=== PATIENT | female | born 1955 | race African-American/Black ===

== ENCOUNTER 2023-03-08 00:43 | Observation (INO) | payer OTHER ==
[2023-03-08] MEDS ORDERED: ALBUTEROL SO4 2.5/IPRATROPIUM 0.5 INH SOL 3 ML VIAL.NEB. NEB ONE ×2 (00:47→12:00)
[2023-03-08] MEDS ORDERED: DEXAMETHASONE SOD PHOSPHATE 10 MG/1 ML VIAL ONE (00:48)
[2023-03-08] MEDS ORDERED: MAGNESIUM SULFATE IN WATER 2 GM/50 ML IVPB IVPB ONE (01:00)
[2023-03-08] MEDS ORDERED: ACETAMINOPHEN INJECTION 100 ML IVPB ONE (01:10)
[2023-03-08] MEDS: ALBUTEROL SO4 2.5/IPRATROPIUM 0.5 INH SOL 3 ML VIAL.NEB. NEB SCH ×2 (01:15→01:30)
[2023-03-08] MEDS: ACETAMINOPHEN 1000 MG/100 ML BAG IVPB ONE (01:17)
[2023-03-08] MEDS ORDERED: DEXAMETHASONE SOD PHOSPHATE 10 MG/1 ML VIAL IM ONE (01:21)
[2023-03-08] MEDS ORDERED: MAGNESIUM SULF 50% (8.12 MEQ/2 ML-1 GM VIAL) IVPB ONE (01:21)
[2023-03-08 01:31] LABS: VENOUS BASE EXCESS 1.4 mmol/L (-2-2); VENOUS O2 SATURATION 45.1 % (70-80); VENOUS PCO2 46.6 mmHg (38-52); VENOUS PH 7.38 (7.310-7.410)
[2023-03-08 01:40] LABS: BASO % 0.2 % (0-2.0); EOS % 1.8 % (0-4.5); HEMATOCRIT 33.2 % (32.4-45.2); HEMOGLOBIN 11.6 GM/dL (10.7-15.3); LYMPH % 9.5 % (8-40); MCHC 34.8 g/dl (32.0-36.0); MEAN CELL VOLUME 97.6 fl (80-96); MEAN PLT VOLUME 8.6 fl (7.5-11.1); MONO % 3.9 % (3.8-10.2); NEUT % 84.6 % (42.8-82.8); PLATELET COUNT 225 10^3/uL (134-434); WHITE BLOOD COUNT 9.4 K/mm3 (4.0-10.0)
[2023-03-08 01:42] LABS: INR 1.12 (0.83-1.09)
[2023-03-08 02:16] LABS: POTASSIUM 3.9 mmol/L (3.5-5.1)
[2023-03-08 02:18] LABS: CALCIUM 8.7 mg/dL (8.5-10.1)
[2023-03-08 02:19] LABS: ALBUMIN 3.8 g/dl (3.4-5.0); BLOOD UREA NITROGEN 10.2 mg/dL (7-18)
[2023-03-08 02:23] LABS: BILIRUBIN,TOTAL 0.4 mg/dL (0.2-1); TOT PROT 7.8 g/dl (6.4-8.2)
[2023-03-08 02:31] LABS: EPI CELLS 7 /uL (0-25.1); HYALINE CASTS 0 /uL (0-3.1); PH,URINE 6.5 (5.0-8.0); URINE APPEARANCE CLEAR; URINE BACTERIA 27 /uL (0-1359); URINE BILIRUBIN NEGATIVE (NEGATIVE); URINE COLOR YELLOW; URINE GLUCOSE (UA) NEGATIVE (NEGATIVE); URINE KETONE NEGATIVE (NEGATIVE); URINE LEUK ESTERASE NEGATIVE (NEGATIVE); URINE NITRITE NEGATIVE (NEGATIVE); URINE PROTEIN NEGATIVE (NEGATIVE); URINE RBC 25 /uL (0-23.9); URINE UROBILINOGEN 0.2 mg/dL (0.2-1.0); URINE WBC 9 /uL (0-25.8)
[2023-03-08] MEDS ORDERED: morphine CARPU-JECT 2 MG/1 ML DISP.SYRIN IVPUSH ONE (03:22)
[2023-03-08 03:36] LABS: MAGNESIUM 3.7 mg/dL (1.8-2.4)
[2023-03-08] MEDS ORDERED: PIPERACILLIN/TAZOB 4.5 GM 4.5 GM in DEXTROSE 5%-WATER 100 ML IVPB ONE (04:06)
[2023-03-08] MEDS ORDERED: VANCOMYCIN 1,000 MG in DEXTROSE 5%-WATER - 250 ML IVPB ONE (04:06)
[2023-03-08] MEDS ORDERED: VANCOMYCIN 1 GRAM (PRE-DOCKED) 1,000 MG/250 ML BAG IVPB ONE (04:10)
[2023-03-08] MEDS ORDERED: PIPERACILLIN/TAZOB 4.5 GM 4.5 GM/100 ML BAG IVPB ONE (04:13)
[2023-03-08] MEDS ORDERED: DOCUSATE SODIUM 100 MG CAPSULE (FP) PO PRN (04:17)
[2023-03-08 06:31] VITALS: BMI 35.6
[2023-03-08] MEDS ORDERED: ALBUTEROL SO4 HFA INHALER IH PRN (07:49)
[2023-03-08] MEDS ORDERED: PATIENT'S OWN MEDICATION (NON-FORMULARY) (Tizanidine Hcl [Tizanidine Hcl] 4 MG Tablet) PO PRN (07:49)
[2023-03-08] MEDS ORDERED: AZITHROMYCIN IVPB 500 MG/250 ML BAG IVPB ONE (08:15)
[2023-03-08] MEDS ORDERED: FUROSEMIDE 20 MG TABLET (FP) PO ONE (08:30)
[2023-03-08] MEDS: ACETAMINOPHEN 1000 MG/100 ML BAG IVPB PRN ×2 (10:08→21:39)
[2023-03-08] MEDS: FLUTICASONE/UMECLIDIN/VILANTER(200-62.5-25 TRELEGY ELLIPTA) INAHLER IH SCH (10:09)
[2023-03-08] MEDS: CEFTRIAXONE 1 GM in DEXTROSE 5%-WATER - 50 ML IVPB SCH (10:09)
[2023-03-08] MEDS: ENOXAPARIN NA (PORCINE) 40 MG/0.4 ML DISP.SYRIN SQ SCH (10:09)
[2023-03-08] MEDS: FUROSEMIDE 20 MG TABLET (FP) PO SCH (10:10)
[2023-03-08] MEDS: ASPIRIN COATED 81 MG TABLET.EC PO SCH (10:10)
[2023-03-08] MEDS: ATENOLOL 50 MG TABLET (FP) PO SCH (10:10)
[2023-03-08] MEDS: SACUBITRIL/VALSARTAN 97 MG-103 MG TABLET PO SCH ×2 (10:11→21:38)
[2023-03-08] MEDS: HYDROXYCHLOROQUINE SO4 200 MG TABLET (FP) PO SCH ×2 (10:11→21:38)
[2023-03-08] MEDS: FAMOTIDINE 20 MG TABLET PO SCH (11:45)
[2023-03-08] MEDS: METHOCARBAMOL 500 MG TABLET PO SCH ×2 (16:41→23:30)
[2023-03-08] MEDS: ATORVASTATIN CA 20 MG TABLET (FP) PO SCH (21:39)
[2023-03-08] MEDS: MIRTAZAPINE 15 MG TABLET (FP) PO SCH (21:39)
[2023-03-09] MEDS: METHOCARBAMOL 500 MG TABLET PO SCH ×3 (05:59→21:43)
[2023-03-09 09:03] LABS: BASO % 0.2 % (0-2.0); EOS % 0.7 % (0-4.5); HEMATOCRIT 29.5 % (32.4-45.2); HEMOGLOBIN 11.2 GM/dL (10.7-15.3); LYMPH % 8.4 % (8-40); MCH 38.2 pg (25.7-33.7); MCHC 38.1 g/dl (32.0-36.0); MEAN CELL VOLUME 100.3 fl (80-96); MEAN PLT VOLUME 8.8 fl (7.5-11.1); MONO % 6.1 % (3.8-10.2); NEUT % 84.6 % (42.8-82.8); PLATELET COUNT 201 10^3/uL (134-434); RBC 2.94 M/mm3 (3.60-5.2); RDW 18.5 % (11.6-15.6); WHITE BLOOD COUNT 11.7 K/mm3 (4.0-10.0)
[2023-03-09] MEDS: ALBUTEROL SO4 2.5/IPRATROPIUM 0.5 INH SOL 3 ML VIAL.NEB. NEB SCH ×4 (09:13→20:35)
[2023-03-09 09:19] LABS: POTASSIUM 3.9 mmol/L (3.5-5.1)
[2023-03-09 09:21] LABS: CALCIUM 8.6 mg/dL (8.5-10.1)
[2023-03-09 09:22] LABS: ALBUMIN 3.4 g/dl (3.4-5.0); BLOOD UREA NITROGEN 9.9 mg/dL (7-18); MAGNESIUM 1.6 mg/dL (1.8-2.4)
[2023-03-09 09:24] LABS: CREATININE 0.8 mg/dL (0.55-1.3); PHOSPHOROUS 2.6 mg/dL (2.5-4.9)
[2023-03-09 09:26] LABS: BILIRUBIN,TOTAL 0.6 mg/dL (0.2-1); TOT PROT 7.3 g/dl (6.4-8.2)
[2023-03-09] MEDS ORDERED: MAGNESIUM SULF 50% (8.12 MEQ/2 ML-1 GM VIAL) IVPB ONE (09:31)
[2023-03-09] MEDS: AZITHROMYCIN IVPB 250 MG in DEXTROSE 5%-WATER - 250 ML IVPB SCH (10:05)
[2023-03-09] MEDS: ENOXAPARIN NA (PORCINE) 40 MG/0.4 ML DISP.SYRIN SQ SCH (10:05)
[2023-03-09] MEDS: FUROSEMIDE 20 MG TABLET (FP) PO SCH (10:06)
[2023-03-09] MEDS: ATENOLOL 50 MG TABLET (FP) PO SCH (10:06)
[2023-03-09] MEDS: FAMOTIDINE 20 MG TABLET PO SCH (10:06)
[2023-03-09] MEDS: CEFTRIAXONE 1 GM in DEXTROSE 5%-WATER - 50 ML IVPB SCH (10:06)
[2023-03-09] MEDS: ASPIRIN COATED 81 MG TABLET.EC PO SCH (10:06)
[2023-03-09] MEDS: HYDROXYCHLOROQUINE SO4 200 MG TABLET (FP) PO SCH ×2 (10:07→21:43)
[2023-03-09] MEDS: SACUBITRIL/VALSARTAN 97 MG-103 MG TABLET PO SCH ×2 (10:07→21:42)
[2023-03-09] MEDS: FLUTICASONE/UMECLIDIN/VILANTER(200-62.5-25 TRELEGY ELLIPTA) INAHLER IH SCH (10:10)
[2023-03-09] MEDS: ACETAMINOPHEN 325 MG TABLET (FP) PO PRN (10:33)
[2023-03-09] MEDS ORDERED: MAGNESIUM SULF 50% (8.12 MEQ/2 ML-1 GM VIAL) ONE (11:41)
[2023-03-09] MEDS ORDERED: HYDROmorphone HCl 2 MG/ML VIAL IVPB ONE (12:54)
[2023-03-09] MEDS: methylPREDNISolone NA SUCC 40 MG/1 ML VIAL IVPUSH SCH (14:52)
[2023-03-09] MEDS ORDERED: ACETAMINOPHEN 1000 MG/100 ML BAG IVPB ONE (17:41)
[2023-03-09] MEDS: ACETAMINOPHEN 1000 MG/100 ML BAG IVPB ONE (18:00)
[2023-03-09] MEDS ORDERED: MELATONIN 5 MG TABLETS PO ONE (21:29)
[2023-03-09] MEDS: ATORVASTATIN CA 20 MG TABLET (FP) PO SCH (21:42)
[2023-03-09] MEDS: MIRTAZAPINE 15 MG TABLET (FP) PO SCH (21:43)
[2023-03-10] MEDS: ACETAMINOPHEN 325 MG TABLET (FP) PO PRN ×2 (05:48→13:11)
[2023-03-10] MEDS: METHOCARBAMOL 500 MG TABLET PO SCH ×2 (05:49→15:13)
[2023-03-10 08:18] LABS: POTASSIUM 4.4 mmol/L (3.5-5.1)
[2023-03-10 08:21] LABS: ALBUMIN 2.9 g/dl (3.4-5.0); BLOOD UREA NITROGEN 10.3 mg/dL (7-18); CALCIUM 8.7 mg/dL (8.5-10.1)
[2023-03-10 08:25] LABS: BILIRUBIN,TOTAL 0.6 mg/dL (0.2-1); TOT PROT 6.6 g/dl (6.4-8.2)
[2023-03-10 08:32] LABS: HEMATOCRIT 30.8 % (32.4-45.2); MCH 31.8 pg (25.7-33.7); MCHC 32.6 g/dl (32.0-36.0); MEAN CELL VOLUME 97.3 fl (80-96); MEAN PLT VOLUME 9.1 fl (7.5-11.1); PLATELET COUNT 192 10^3/uL (134-434); RBC 3.16 M/mm3 (3.60-5.2); RDW 18.5 % (11.6-15.6); WHITE BLOOD COUNT 13.2 K/mm3 (4.0-10.0)
[2023-03-10] MEDS: ALBUTEROL SO4 2.5/IPRATROPIUM 0.5 INH SOL 3 ML VIAL.NEB. NEB SCH ×3 (09:35→15:49)
[2023-03-10] MEDS: ENOXAPARIN NA (PORCINE) 40 MG/0.4 ML DISP.SYRIN SQ SCH (10:55)
[2023-03-10] MEDS: CEFTRIAXONE 1 GM in DEXTROSE 5%-WATER - 50 ML IVPB SCH (10:55)
[2023-03-10] MEDS: methylPREDNISolone NA SUCC 40 MG/1 ML VIAL IVPUSH SCH (10:55)
[2023-03-10] MEDS: FUROSEMIDE 20 MG TABLET (FP) PO SCH (10:56)
[2023-03-10] MEDS: ASPIRIN COATED 81 MG TABLET.EC PO SCH (10:56)
[2023-03-10] MEDS: FAMOTIDINE 20 MG TABLET PO SCH (10:56)
[2023-03-10] MEDS: SACUBITRIL/VALSARTAN 97 MG-103 MG TABLET PO SCH (10:56)
[2023-03-10] MEDS: HYDROXYCHLOROQUINE SO4 200 MG TABLET (FP) PO SCH (10:56)
[2023-03-10] MEDS: AZITHROMYCIN IVPB 250 MG in DEXTROSE 5%-WATER - 250 ML IVPB SCH (10:56)
[2023-03-10] MEDS: ATENOLOL 50 MG TABLET (FP) PO SCH (10:56)
[2023-03-10] MEDS: FLUTICASONE/UMECLIDIN/VILANTER(200-62.5-25 TRELEGY ELLIPTA) INAHLER IH SCH (10:57)
[2023-03-10 17:58] VITALS: BP 134/82; PULSE 100; RESP 20; TEMP 98.9
== END 2023-03-10 19:26 | disposition home or self-care (01) ==
LOC: JER 00:43 → INTOOBSV 04:23 → JERBED 04:23 → UNDOADMOB 04:23 → JERBED 06:14 → J4W 06:14 → JERBED 14:07 → J4W 14:07
PROVIDERS: ADMIT Internal Medicine; ATTEND Internal Medicine
PROC: 3E033NZ Introduction of Analgesics, Hypnotics, Sedatives into Peripheral Vein, Percutaneous Approach (ICD-10-PCS; principal; 2023-03-08)
PROC: 3E0F7GC Introduction of Other Therapeutic Substance into Respiratory Tract, Via Natural or Artificial Opening (ICD-10-PCS; 2023-03-08)
PROC: 3E03329 Introduction of Other Anti-infective into Peripheral Vein, Percutaneous Approach (ICD-10-PCS; 2023-03-08)
PROC: 3E023GC Introduction of Other Therapeutic Substance into Muscle, Percutaneous Approach (ICD-10-PCS; 2023-03-08)
DX: J18.9 Pneumonia, unspecified organism (principal); J96.21 Acute and chronic respiratory failure with hypoxia; R50.9 Fever, unspecified; J44.9 Chronic obstructive pulmonary disease, unspecified; E11.9 Type 2 diabetes mellitus without complications; Z99.81 Dependence on supplemental oxygen; M06.9 Rheumatoid arthritis, unspecified; Z95.810 Presence of automatic (implantable) cardiac defibrillator; I50.9 Heart failure, unspecified
CPT/HCPCS: 0241U-QW; 36415; 71045-TC-FY; 71275-TC; 80048; 80053; 81003; 82550; 82553; 82803; 82962; 83036; 83605; 83735; 83880; 84100; 84484; 85025; 85027; 85610; 85730; 86850; 86900; 86901; 87040; 87086; 93005; 93010; 94640; 96365; 96366; 96367; 96368; 96372; 96375; 96376; 99285-25; G0378; J1100; Q9967

== ENCOUNTER 2024-06-16 05:04 | Emergency (ER) | payer OTHER ==
[2024-06-16 05:09] VITALS: RESP 24; BMI 30.7
[2024-06-16 06:44] LABS: BASO % 0.5 % (0-2.0); EOS % 0.1 % (0-4.5); HEMOGLOBIN 10.8 GM/dL (10.7-15.3); LYMPH % 24.9 % (8-40); MCH 32.9 pg (25.7-33.7); MCHC 32.9 g/dl (32.0-36.0); MEAN PLT VOLUME 8.8 fl (7.5-11.1); MONO % 6.8 % (3.8-10.2); NEUT % 67.7 % (42.8-82.8); PLATELET COUNT 209 10^3/uL (134-434); RDW 14.2 % (11.6-15.6); WHITE BLOOD COUNT 5.5 K/mm3 (4.0-10.0)
[2024-06-16 06:52] LABS: INR 0.93 (0.83-1.09); PROTHROMBIN TIME (PATIENT) 10.7 SEC (9.7-13.0)
[2024-06-16 06:54] LABS: ACTIVATED PTT 31.7 SECONDS (25.2-36.5)
[2024-06-16 07:02] LABS: POTASSIUM 3.6 mmol/L (3.5-5.1)
[2024-06-16 07:04] LABS: CALCIUM 8.8 mg/dL (8.5-10.1)
[2024-06-16 07:05] LABS: ALBUMIN 3.2 g/dl (3.4-5.0)
[2024-06-16 07:08] LABS: CREATININE 0.8 mg/dL (0.55-1.3)
[2024-06-16 07:10] LABS: BILIRUBIN,TOTAL 0.3 mg/dL (0.2-1); TOT PROT 6.8 g/dl (6.4-8.2)
[2024-06-16 08:01] VITALS: TEMP 98.3
[2024-06-16] MEDS: GABAPENTIN 400 MG CAPSULE PO ONE (08:55)
[2024-06-16] MEDS: ATORVASTATIN CA 20 MG TABLET (FP) PO ONE (08:55)
[2024-06-16] MEDS: glipiZIDE 5 MG TABLET (FP) PO ONE (08:55)
[2024-06-16] MEDS: ASPIRIN COATED 81 MG TABLET.EC PO ONE (08:55)
[2024-06-16] MEDS ORDERED: ASPIRIN COATED 81 MG TABLET.EC ONE (09:07)
[2024-06-16] MEDS ORDERED: ATORVASTATIN CA 20 MG TABLET (FP) ONE (09:07)
[2024-06-16] MEDS ORDERED: glipiZIDE 5 MG TABLET (FP) ONE (09:07)
[2024-06-16] MEDS ORDERED: GABAPENTIN 400 MG CAPSULE ONE (09:07)
[2024-06-16] MEDS: SACUBITRIL/VALSARTAN 97 MG-103 MG TABLET PO ONE (09:55)
[2024-06-16] MEDS ORDERED: FAMOTIDINE 10 MG TABLET ONE (10:48)
[2024-06-16] MEDS ORDERED: KETOROLAC TROMETHAMINE 15 MG/ML VIAL ONE ×2 (10:48→10:51)
[2024-06-16] MEDS: KETOROLAC TROMETHAMINE 15 MG/ML VIAL IVPUSH ONE (11:02)
[2024-06-16] MEDS: FAMOTIDINE 10 MG TABLET PO ONE (11:02)
[2024-06-16] MEDS: FLUTICASONE/UMECLIDIN/VILANTER(200-62.5-25 TRELEGY ELLIPTA) INAHLER IH SCH (11:03)
[2024-06-16 11:27] VITALS: BP 129/63; PULSE 83
== END 2024-06-16 11:47 | disposition home or self-care (01) ==
LOC: JER 05:04
PROC: 3E0333Z Introduction of Anti-inflammatory into Peripheral Vein, Percutaneous Approach (ICD-10-PCS; principal; 2024-06-16)
DX: R07.2 Precordial pain (principal); R06.02 Shortness of breath; Z20.822 Contact with and (suspected) exposure to COVID-19
CPT/HCPCS: 0241U-QW; 36415; 71046-TC-FY; 71275-TC; 80053; 83880; 84484; 85025; 85379; 85610; 85730; 93005; 93010; 96374; 99285-25